=== PATIENT | female | born 1930 | race Caucasian/White ===

== ENCOUNTER → 2019-06-15 | Outpatient (CLI) | payer MEDICARE, BC ==
[2017-08-28 10:34] VITALS: BP 149/53
[~2019-06-15] MED LIST: AMLO5TAB4 PO; ASPI325T8 PO; ATOR40TA59 PO; CARV25TA PO; CHOL2000 PO; FURO20TA3 PO; LORA0.5T PO; MELO7.5T29 PO; MOME13HF IH; PRED1TAB3 PO; SENN176S3 PO; SERT50TA PO; VALS320T2 PO
--- NOTE | 2019-06-16 16:30 | RAD ---
DATE: 06/16/2019. EXAM: DIGITAL SCREEN RT W/CAD. HISTORY: Personal history of left breast cancer status post mastectomy. Routine surveillance. COMPARISON: 06/14/2018. This study was interpreted with the benefit of Computerized Aided Detection (CAD). FINDINGS: Breast Density: HETERO The breast parenchyma is heterogenously dense, which could reduce sensitivity of mammography. Breast parenchyma level C.. Scattered, vascular and coarse calcifications are stable and benign. There are no suspicious masses, microcalcifications or architectural distortion. The parenchymal pattern is stable. BI-RADS CATEGORY: 2 BENIGN FINDING(S). RECOMMENDED FOLLOW-UP: 12M 12 MONTH FOLLOW-UP. PQRS compliance statement: Patient information was entered into a reminder system with a target due date 06/16/2020 for the next mammogram. Mammography is a sensitive method for finding small breast cancers, but it does not detect them all and is not a substitute for careful clinical examination. A negative mammogram does not negate a clinically suspicious finding and should not result in delay in biopsying a clinically suspicious abnormality. "Our facility is accredited by the [employer] Mammography Program."
== END | disposition home or self-care (01) ==
LOC: MAMMO 13:13
PROVIDERS: ATTEND Internal Medicine Hematology & Oncology
DX: Z12.31 Encounter for screening mammogram for malignant neoplasm of breast (principal); N64.89 Other specified disorders of breast; Z90.12 Acquired absence of left breast and nipple; Z85.3 Personal history of malignant neoplasm of breast
CPT/HCPCS: 77067